=== PATIENT | female | born 1945 | race Caucasian/White ===

== ENCOUNTER 2016-12-31 13:29 | Emergency (ER) | payer OTHER ==
[~2016-12-31] VITALS: Ht 162.6 cm; Wt 60.0 kg
[2016-12-31 13:36] VITALS: BP 172/90; PULSE 100; RESP 14; TEMP 97.7; O2SAT 95
[2016-12-31] MEDS ORDERED: ACETAMINOPHEN 325 MG TAB PO ONE (13:45)
--- NOTE | 2016-12-31 15:30 | PD ---
HPI Chief Complaint: Injury Time Seen by Provider: 13:35 Travel History International Travel<30 days: No Contact w/Intl Traveler<30days: No Traveled to known affect area: No History of Present Illness HPI Patient is a 71-year-old female comes in after she tripped and fell on her face. She says she was walking when someone suddenly stuck foot out and she tripped. She had in her face. She says it happens a fast, she was unable to brace herself. She denies any loss of consciousness. She says she has a sinus headache, which she has had prior to the fall. She denies any dizziness, nausea , vomiting. She denies fever or chills. She denies any chest pain or shortness of breath. [facility] Past Medical History Medical History: Denies Significant Hx ?: Not Past Surgical History Appendectomy: Yes Social History Alcohol Use: No Tobacco Use: Yes Substance Use: No Allergies-Medications (Allergen,Severity, Reaction): Coded Allergies: No Known Allergies (Unverified , 12/31/16) Reported Meds & Prescriptions Reported Meds & Active Scripts Active No Active Prescriptions or Reported Medications Review of Systems Except as stated in HPI: all other systems reviewed are Neg General / Constitutional: No: Fever, Chills Eyes: No: Blurred Vision HENT: Positive: Headaches Cardiovascular: No: Chest Pain or Discomfort Respiratory: No: Shortness of Breath Gastrointestinal: No: Nausea, Vomiting Musculoskeletal: No: Myalgias, Pain Skin: No Rash, No Change in Pigmentation Neurologic: No: Weakness, Dizziness Physical Exam Narrative GENERAL: Awake and alert, in no acute distress. SKIN: Focused skin assessment warm/dry. Abrasions just under the nose. HEAD: Atraumatic. Normocephalic. EYES: Pupils equal and round. No scleral icterus. No injection or drainage. ENT: No septal hematoma. No tenderness to palpation of the nose. NECK: Trachea midline. No JVD. No cervical spine tenderness. CARDIOVASCULAR: Regular rate and rhythm. No murmur appreciated. RESPIRATORY: No accessory muscle use. Clear to auscultation. Breath sounds equal bilaterally. MUSCULOSKELETAL: No obvious deformities. No clubbing. No cyanosis. No edema. NEUROLOGICAL: Awake and alert. No obvious cranial nerve deficits. Motor grossly within normal limits. Normal speech. PSYCHIATRIC: Appropriate mood and affect; insight and judgment normal. Data Data Last Documented VS Vital Signs Date Time Temp Pulse Resp B/P Pulse Ox O2 Delivery O2 Flow Rate FiO2 12/31/16 13:36 97.7 100 14 172/[address] Brain W/O Iv Contrast(Rout) (12/31/16 ) Ct Facial Bones W/O Iv Cont (12/31/16 ) Acetaminophen (Tylenol) (12/31/16 13:45) MDM Medical Decision Making Medical Screen Exam Complete: Yes Emergency Medical Condition: Yes Differential Diagnosis Facial fracture versus ICH versus trip and fall Narrative Course Patient is a 71-year-old female who comes in after she fell on her face. Exam shows abrasions just under her nose. CT head and facial bones show no acute abnormalities. Patient had a tetanus shot within the last 5 years. She is given Tylenol for pain. She is asking to leave. Discharged home. Diagnosis Primary Impression: Fall Qualified Code: W19.XXXA - Fall, initial encounter Patient Instructions: Fall Prevention (ED), General Instructions, Head Injury ( ED) Additional Instructions: Follow-up with a primary care doctor. Return to the ED as needed for any worsening symptoms. Scripts No Active Prescriptions or Reported Meds Disposition: 01 DISCHARGE HOME Condition: Stable Elizabeth Camacho MD Dec 31, 2016 15:30
--- NOTE | 2016-12-31 15:45 | RADRPT ---
EXAM DATE/TIME: 12/31/2016 15:19 [facility] COMPARISON: No previous studies available for comparison. INDICATIONS : Trauma fall. RADIATION DOSE: 33.92 CTDIvol (mGy) MEDICAL HISTORY : Seizures. Cardiovascular disease SURGICAL HISTORY : Dental ENCOUNTER: Initial ACUITY: 1 day PAIN SCALE: 1/10 LOCATION: cranial TECHNIQUE: Multiple contiguous axial images were obtained of the head. Using automated exposure control and adj ustment of the mA and/or kV according to patient size, radiation dose was kept as low as reasonably a chievable to obtain optimal diagnostic quality images. FINDINGS: CEREBRUM: The ventricles are normal for age. No evidence of midline shift, mass lesion, hemorrhage or acute in farction. No extra-axial fluid collections are seen. Mild to moderate periventricular and subcortica l white matter small vessel ischemic changes are noted bilaterally. POSTERIOR FOSSA: The cerebellum and brainstem are intact. The 4th ventricle is midline. The cerebellopontine angle i s unremarkable. EXTRACRANIAL: The visualized portion of the orbits is intact. Mild mucosal thickening is noted within the right ant erior ethmoid air cells. SKULL: The calvaria is intact. No evidence of skull fracture. CONCLUSION: 1. Mild to moderate periventricular and subcortical white matter small vessel ischemic changes bilate rally. 2. No acute infarct, acute hemorrhage, mass effect or extra axial fluid collections. 3. Mild mucosal thickening involving the right anterior ethmoid air cells. Migue Lama MD on December 31, 2016 at 15:40 Board Certified Radiologist. This report was verified electronically.
--- NOTE | 2016-12-31 15:57 | RADRPT ---
EXAM DATE/TIME: 12/31/2016 15:19 [facility] COMPARISON: No previous studies available for comparison. INDICATIONS : status post fall. RADIATION DOSE: 40.60 CTDIvol (mGy) MEDICAL HISTORY : Seizures. SURGICAL HISTORY : None. ENCOUNTER: Initial ACUITY: 1 day PAIN SCORE: 6/10 LOCATION: Left anterior upper lip to nose area TECHNIQUE: Volumetric scanning of the facial bones was performed. Using automated exposure control and adjustme nt of the mA and/or kV according to patient size, radiation dose was kept as low as reasonably achiev able to obtain optimal diagnostic quality images. FINDINGS: ORBITS: The orbital and infraorbital osseous structures are intact. The retroconal structures have a normal configuration. No radiopaque foreign bodies are seen. NASAL BONE: The nasal bone and maxillary spine are intact ZYGOMATIC ARCHES: Symmetric without evidence of fracture. SINUSES: Mild mucosal thickening is noted within the right anterior ethmoid air cells, right maxillary sinus a nd right sphenoid sinus. NASAL CAVITY: There is a defect within the nasal septum. There is nasal septal deviation to the right. Bilateral co ncha bullosa is noted. The lacrimal ducts are intact. SOFT TISSUES: No radiopaque foreign bodies seen. No soft-tissue swelling is seen. INTRACRANIAL: No intracranial air seen. CRIBIFORM PLATE: Grossly intact. CONCLUSION: No facial bone fracture. Nasal septal defect. Nasal septal deviation to the right. Bi lateral fatimah bullosa. Mild mucosal thickening involving the right anterior ethmoid air cells, right maxillary sinus and right sphenoid sinus. Periapical cyst involving a right lower tooth to the right of midline. Migue Lama MD on December 31, 2016 at 15:49 Board Certified Radiologist. This report was verified electronically.
== END 2016-12-31 16:26 | disposition home or self-care (01) ==
LOC: NEPD 13:29
DX: S09.90XA Unspecified injury of head, initial encounter (principal); W01.10XA Fall on same level from slipping, tripping and stumbling with subsequent striking against unspecified object, initial encounter; Y93.01 Activity, walking, marching and hiking; Z72.0 Tobacco use
CPT/HCPCS: 70450; 70486